=== PATIENT | male | born 1990 | race Caucasian/White ===

== ENCOUNTER 2021-03-18 08:03 | Emergency (ER) | payer OTHER ==
[~2021-03-18 08:03] MED LIST: COLCRYS0.6 MG PO; INDOCIN25 MG PO; NORCO 5-325 TA1 EACH PO; NORCO 7.5-3251 EACH PO
[2021-03-18] MEDS ORDERED: NAPROXEN500 MG PO (08:52)
[2021-03-18] MEDS ORDERED: NORCO 5-325 TA1 EACH PO (08:52)
== END 2021-03-18 14:47 | disposition home or self-care (01) ==
LOC: FER 08:03
DX: M10.9 Gout, unspecified (principal); I10 Essential (primary) hypertension; M25.572 Pain in left ankle and joints of left foot; M79.672 Pain in left foot; F17.210 Nicotine dependence, cigarettes, uncomplicated; M79.89 Other specified soft tissue disorders
CPT/HCPCS: J2930

== ENCOUNTER 2021-04-14 15:05 | Emergency (ER) | payer OTHER ==
[~2021-04-14 15:05] MED LIST changes: +NAPROXEN500 MG PO
[2021-04-14] MEDS ORDERED: NORCO 5-325 TA1 EACH PO (17:33)
== END 2021-04-14 17:57 | disposition home or self-care (01) ==
LOC: FER 15:05
DX: S62.316A Displaced fracture of base of fifth metacarpal bone, right hand, initial encounter for closed fracture (principal); W22.01XA Walked into wall, initial encounter; Y92.009 Unspecified place in unspecified non-institutional (private) residence as the place of occurrence of the external cause
CPT/HCPCS: 73130

== ENCOUNTER 2022-02-14 11:22 | Emergency (ER) | payer OTHER ==
[2022-02-14 12:38] LABS: BASOPHIL 0.6 % (0-2); EOSINOPHIL 3.1 % (0-5); HGB 17.7 g/dl (13.2-18.0); LYMPHOCYTE 18.9 % (15-48); MCH 27.6 pg (25.0-31.0); MCHC 32.8 g/dL (32.0-36.0); MCV 84.2 fL (78.0-100.0); MONOCYTE 5.8 % (0-12); MPV 10.5 fL (6.0-9.5); NEUTROPHIL 71.3 % (41-80); NRBC 0; PLT 175 K/uL (150-400); RBC 6.41 M/uL (4.70-6.00); RDW 15.2 % (11.5-14.0); WBC 15.3 K/uL (4.0-10.5)
[2022-02-14 12:51] LABS: BUN/CREAT RATIO (CALC) 12.4 RATIO; CREATININE 1.05 mg/dL (0.67-1.17); POTASSIUM 3.8 mmol/L (3.5-5.1); URIC ACID 9.3 mg/dL (3.5-7.2)
[2022-02-14] MEDS ORDERED: COLCRYS0.6 MG PO (13:28)
[2022-02-14] MEDS ORDERED: PREDNISONE 20MG20 MG PO (13:28)
== END 2022-02-14 13:43 | disposition home or self-care (01) ==
LOC: FER 11:22
PROVIDERS: Emergency Medicine
DX: M10.9 Gout, unspecified (principal); I10 Essential (primary) hypertension; F17.210 Nicotine dependence, cigarettes, uncomplicated
CPT/HCPCS: 36415; 80048; 84550; 85025; J1885; J7512